=== PATIENT | female | born 1960 | race Caucasian/White ===

== ENCOUNTER 2019-06-22 06:57 | Day surgery (SDC) | payer OTHER ==
[2019-06-22] MEDS ORDERED: LIDOCAINE 2% (SDV) 5 ML INJ (08:27)
[2019-06-22] MEDS ORDERED: PROPOFOL 40 ML ×2 (08:27→09:28)
[2019-06-22] MEDS ORDERED: ONDANSETRON 4 MG INJ IV (08:30)
[2019-06-22] MEDS ORDERED: EPHEDrine 25 MG/5 ML SYG (09:53)
== END 2019-06-22 11:52 | disposition home or self-care (01) ==
LOC: GIL 06:57
DX: Z12.11 Encounter for screening for malignant neoplasm of colon (principal); D12.0 Benign neoplasm of cecum; D12.3 Benign neoplasm of transverse colon; K64.9 Unspecified hemorrhoids
CPT/HCPCS: 45385; 88305